=== PATIENT | female | born 1970 | race African-American/Black ===

== ENCOUNTER 2024-02-28 01:05 | Emergency (ER) | payer MEDICAID ==
[~2024-02-28] VITALS: Ht 154.9 cm; Wt 84.5 kg
[2024-02-28 01:12] VITALS: TEMP 97.5
[2024-02-28 02:42] LABS: BASOPHILS % (AUTO) 0.5 % (0.0-2.0); EOSINOPHILS % (AUTO) 2.1 % (1.0-6.0); HEMATOCRIT 42.4 % (36-46); LYMPHOCYTES # (AUTO) 2.5 K/uL (1.0-4.8); LYMPHOCYTES % (AUTO) 36.4 % (22.0-44.0); MEAN CORPUSCULAR HEMOGLOBIN 31.6 pg (26.0-34.0); MEAN CORPUSCULAR HGB CONC 33.1 G/dL (31.0-37.0); MEAN CORPUSCULAR VOLUME 95 fL (80-100); MONOCYTES # (AUTO) 0.5 K/uL (0.1-1.0); MONOCYTES % (AUTO) 6.9 % (2.0-9.0); NEUTROPHILS # (AUTO) 3.7 K/uL (1.8-7.7); NEUTROPHILS % (AUTO) 54.1 % (40.0-70.0); PLATELET COUNT (AUTO) 325 K/uL (150-450); RED BLOOD CELL COUNT(AUTO) 4.45 MIL/uL (4.00-5.20); RED CELL DISTRIBUTION WIDTH 13.9 % (11.5-14.5); WHITE BLOOD COUNT (AUTO) 6.8 K/uL (4.5-11.0)
[2024-02-28 02:51] LABS: CALCIUM, TOTAL 8.9 mg/dL (8.8-10.5); CREATININE 1.14 mg/dL (0.60-1.30); POTASSIUM 3.8 mmol/L (3.5-5.1)
[2024-02-28 03:31] VITALS: BP 129/77; PULSE 75; RESP 16
[2024-02-28] MEDS ORDERED: IBUP-1554 PO (03:42)
[2024-02-28] MEDS ORDERED: ACET-66 PO (03:42)
[2024-02-28] MEDS ORDERED: FURO20 PO (03:42)
[2024-02-28] MEDS: FUROSEMIDE 20 MG TABLET PO ONE (04:12)
[2024-02-28] MEDS: ACETAMINOPHEN 500 MG TABLET PO ONE (04:12)
[2024-02-28] MEDS: KETOROLAC TROMETHAMINE 60 MG/2 ML VIAL IM ONE (04:13)
== END 2024-02-28 05:38 | disposition home or self-care (01) ==
LOC: EMS 01:05
DX: R60.0 Localized edema (principal); F17.210 Nicotine dependence, cigarettes, uncomplicated; F12.90 Cannabis use, unspecified, uncomplicated; Z88.0 Allergy status to penicillin
CPT/HCPCS: 99283; 80048; 85025; 36415; 96372; J1885